=== PATIENT | female | born 1960 | race Caucasian/White ===

== ENCOUNTER 2025-01-07 06:41 | Day surgery (SDC) | payer MEDICARE, OTHER ==
--- NOTE | 2024-12-29 14:07 | ELECTROCARDIOGRAPH REPORT ---
[facility] Test Date: 2024-12-29 Test Time: 14:03:37 Pat Name: MARGARITA FERNANDES Department: [facility]-PRE-OP Patient ID: [id number] Room: Gender: F Calculation Reviewer: RHONDA : 1960 Requested By: REN LUKE Order Number: [id number] Reading MD: Dr. ORLIN Shafer Measurements Intervals [place] Rate: 74 P: 46 MN: 134 QRS: 80 QRSD: 91 T: 61 QT: 369 QTc: 410 Interpretive Statements Sinus rhythm Low voltage, extremity leads Baseline wander in lead(s) V5 Electronically Signed On 12-29-2024 17:19:[address] ORLIN Shafer Please click the below link to view image of tracing.
[2024-12-29 14:36] LABS: BASOPHILS # (AUTO) 0.1 X10'3 (0-0.2); BASOPHILS % (AUTO) 0.8 % (0-1); EOSINOPHILS # (AUTO) 0.1 X10'3 (0-0.9); EOSINOPHILS % (AUTO) 1.5 % (0-6); LYMPHOCYTES # (AUTO) 2.9 X10'3 (1.1-4.8); LYMPHOCYTES % (AUTO) 29.5 % (21-51); MEAN CORPUSCULAR HEMOGLOBIN 29.7 PG (27.0-31.0); MEAN CORPUSCULAR HGB CONC 33.9 g/dL (33.0-36.5); MEAN CORPUSCULAR VOLUME 87.5 FL (78-98); MEAN PLATELET VOLUME 7.9 FL (7.4-10.4); MONOCYTES # (AUTO) 1.2 X10'3 (0-0.9); MONOCYTES % (AUTO) 12.4 % (2-12); NEUTROPHILS # (AUTO) 5.5 X10'3 (1.8-7.7); NEUTROPHILS % (AUTO) 55.8 % (42-75); PRE OP HEMATOCRIT 43.6 % (35.0-45.0); PRE OP HEMOGLOBIN 14.8 g/dL (12.0-16.0); PRE OP PLATELET COUNT 309 X10'3 (140-440); PRE OP WHITE BLOOD COUNT 9.8 10'3 (4.8-10.8); RED BLOOD COUNT 4.99 X10'6 (4.20-5.60); RED CELL DISTRIBUTION WIDTH 13.9 % (11.5-14.5)
[2024-12-29 14:53] LABS: ALBUMIN 4.2 G/DL (3.4-5.0); ALBUMIN/GLOBULIN RATIO 1.1 (1.1-1.5); ALKALINE PHOSPHATASE 96 IU/L (46-116); BLOOD UREA NITROGEN 16 MG/DL (7-18); BUN/CREATININE RATIO 18.4 (10.0-20.0); CALCIUM 9.3 MG/DL (8.5-10.1); CHLORIDE 105 MMOL/L (99-107); CREATININE 0.87 MG/DL (0.40-0.90); PRE OP ALT 17 U/L (30-65); PRE OP ANION GAP 7 (8-16); PRE OP AST 23 U/L (10-37); PRE OP BILIRUB, TOTAL 0.3 MG/DL (0.0-1.0); PRE OP GLUCOSE 99 MG/DL (70-104); PRE OP POTASSIUM 3.9 MMOL/L (3.4-5.1); PRE OP SODIUM 140 MMOL/L (135-145); TOTAL CARBON DIOXIDE 27.7 MMOL/L (24-32); TOTAL PROTEIN 7.9 G/DL (6.4-8.2); eGFR 65 ML/MIN
[2024-12-29 15:12] LABS: PRE OP PROTIME 10.3 SECONDS (9.0-12.0)
[~2025-01-07] VITALS: Ht 170.2 cm; Wt 61.0 kg
[2025-01-07] VITALS (12 sets, daily range): BP systolic 88–143; BP diastolic 56–98; PULSE 66–82; RESP 13–22; TEMP 97.8; O2SAT 95–98
[~2025-01-07 06:41] MED LIST: ALBU18HF2 IH; ALPR1TAB7 PO; CYCL-920 PO; DOCUMENT DATE & TIME OF BETA-BLOCKER PO ONE; DULO60CA65 PO; FENO160T PO; METF-900 PO; METO-384 PO; PREG50CA65 PO; QUET100T34 PO; SIMV-45 PO
[2025-01-07] MEDS ORDERED: BUPIVAcaine 0.25% w/Epi /PF 30ml vial ONE (06:43)
[2025-01-07] MEDS ORDERED: BUPIVAcaine 2.5mg/ml inj 50ml vial (contains preservative) ONE (06:43)
[2025-01-07] MEDS ORDERED: LIDOcaine 1% 30ml preserv. free vial ONE (06:43)
[2025-01-07] MEDS: ceFAZolin 2gm/dext,iso 50mL 50 ML IV ONE (07:27)
[2025-01-07] MEDS: ringers solution, lacted 1,000 ML IV SCH (07:28)
[2025-01-07] MEDS: famotidine 20mg tablet PO ONE (07:28)
[2025-01-07] MEDS ORDERED: [UNRECOGNIZED DRUG - OTHER] PO (07:31)
[2025-01-07] MEDS: albuterol 2.5 MG/3 ML nebule NEB ONE (08:24)
[2025-01-07] MEDS ORDERED: fentaNYL/PF 50MCG/1 ML 2ML syringe ONE (08:28)
[2025-01-07] MEDS ORDERED: propofol inj 20 ML IV ONE (08:29)
[2025-01-07] MEDS ORDERED: midazolam 1 mg/ML 2ml injection ONE (08:29)
[2025-01-07] MEDS ORDERED: ondansetron/PF 4mg/2ml inj IV PRN (08:45)
[2025-01-07] MEDS ORDERED: hydrALAZINE 20mg/ml inj. IV PRN (08:45)
[2025-01-07] MEDS ORDERED: labetalol 20mg/4ml (5mg/ml) syringe IV PRN (08:45)
[2025-01-07] MEDS ORDERED: ringers solution, lacted 1,000 ML IV SCH (08:45)
[2025-01-07] MEDS ORDERED: morphine 2 MG/ML inj. syringe IV PRN (08:45)
[2025-01-07] MEDS ORDERED: morphine 4 MG/ML inj SYRINge IV PRN (08:45)
[2025-01-07] MEDS ORDERED: HYDROmorphone/PF 0.2 MG/ML SYRINGE IV PRN ×2 (08:45)
[2025-01-07] MEDS ORDERED: sevoflurane 250ml liquid IH ONE (09:21)
[2025-01-07] MEDS: BUPIVAcaine/PF 2.5 mg/ml (0.25%) 30ml vial IJ ONE (09:35)
[2025-01-07] MEDS ORDERED: dexamethasone sod phosphate 4mg/ml inj. ONE (10:16)
[2025-01-07] MEDS ORDERED: ondansetron/PF 4mg/2ml inj ONE (10:17)
[2025-01-07] MEDS: ipratropium/albuterol 3ml nebule NEB ONE (10:51)
--- NOTE | 2025-01-07 10:58 | OPERATIVE REPORT ---
Operative Report Providers to ~ Date of Procedure: Jan 07, 2025 Pre-Operative Diagnosis: Breast cancer, right upper outer quadrant Post-Operative Diagnosis SAME as PRE-Op Procedure Performed Tracking marker localization segmental mastectomy Specimen radiograph Lymphatic mapping Deep axillary biopsy for recovery of sentinel node Intercostal block at each of three levels for postoperative pain control Surgeon: Ren Meehan MD Kineseologist None Anesthesiologist: Desean Calero Type of Anesthesia: General Findings: Tracking marker not identified within the patient's breast specimen due to a failure of the tracking marker dictation device Changes consistent with the patient's known breast cancer seen on specimen radiograph One sentinel lymph node identified peak count 510 Complications Failure of tracking marker localization device, mid procedure precluding identification of the tracking marker within the specimen Prosthetics\Implants used: None Estimated Blood Loss: Less than 25 cc Specimen Removed: Right upper outer quadrant breast specimen [place] lymph node 1. Description of Procedure: The patient is identified in the supine position with the right arm extended. She was prepped and draped in the usual sterile fashion. Prior to surgery the patient has undergone placement of an ultrasound-guided tracking marker in my office. Preoperative antibiotics were administered within 1 hour of the patient's incision. SCDs were applied. An audible tracking marker signal was identified in the right upper outer quadrant and this location was marked. A curvilinear incision was made over this and the underlying breast tissue was excised down to fascia with the LigaSure. Evaluation of the specimen was not possible due to a failure of the tracking marker localization device. There was no audible or visual signal indicating the location of the marker. A complete skin of the entire right breast was carried out and, again, the marker was not i dentified. The specimen radiograph was obtained at demonstrates changes consistent with the patient's breast cancer. The wound was thoroughly irrigated. The incision was closed with interrupted 3-0 Vicryl pop-off sutures for the deep layers and a running 3-0 Stratafix suture for skin. Attention was then turned to the axilla. A hot spot was localized over the right axilla with the Hologic gamma probe. A small incision was made over this and dissection was carried out down through the clavipectoral fascia. Lymphatic mapping was carried out with the Hologic gamma probe. One sentinel lymph node was identified and this was excised with the LigaSure. Further lymphatic mapping demonstrates no additional hot lymph nodes. No palpable lymph nodes were identified. The wound was thoroughly irrigated. Hemostasis was obtained. An intercostal block was performed at each of four levels for postoperative pain control with 2 cc of mixed lidocaine and Marcaine. The incision was then closed with interrupted 3-0 Vicryl pop-off for the deep layers and a running 3-0 Stratafix for skin. Incisions were dressed with Dermabond and a Steri-Strip. The patient was taken to the PAR in stable condition. Estimated blood loss less than 25 cc. Final sponge and needle count was correct x2 Counts repoted as correct: Yes REN MEEHAN MD Jan 07, 2025 10:58
[2025-01-07] MEDS: acetaminophen 1,000mg/100ml IV 100 ML IV ONE (11:14)
== END 2025-01-07 11:42 | disposition home or self-care (01) ==
LOC: PAS 06:41
PROVIDERS: ATTEND Surgery
DX: C50.411 Malignant neoplasm of upper-outer quadrant of right female breast (principal); I10 Essential (primary) hypertension; J43.9 Emphysema, unspecified; E11.9 Type 2 diabetes mellitus without complications; F41.9 Anxiety disorder, unspecified; F17.210 Nicotine dependence, cigarettes, uncomplicated; M19.90 Unspecified osteoarthritis, unspecified site; Z90.49 Acquired absence of other specified parts of digestive tract; Z79.899 Other long term (current) drug therapy; Z79.01 Long term (current) use of anticoagulants; Z72.89 Other problems related to lifestyle; Z98.890 Other specified postprocedural states
CPT/HCPCS: 19125; 36415; 38525; 38792; 80053; 82948; 85025; 85610; 85730; 93005; 94640; 94760; A4215; A4618; A6402; A7000; J0131; J1100; J2003; J2250; J2405; J2704; J3010; J3490; J7030; J7120; Z7506; Z7508; Z7512; Z7610; 88307; 88342; A6449; J0665